=== PATIENT | female | born 1960 | race Caucasian/White ===

== ENCOUNTER 2019-05-31 21:02 | Inpatient (IN) | payer BC ==
[2019-05-31] MEDS: ONDANSETRON 4 MG INJ IV (22:06)
[2019-05-31] MEDS: morphine 4 MG/ML VIAL IV (22:06)
[2019-05-31] MEDS: SOD CHLORIDE 0.9% 1,000 ML IV (22:07)
[2019-05-31] MEDS: metroNIDAZOLE 500 MG/NS (PMX) 100 ML IVPB (22:12)
[2019-05-31 22:13] LABS: ADD MAN DIFF? NO
[2019-05-31 22:17] LABS: WHITE BLOOD COUNT 10.3 10^3/ul (4.8-10.8)
[2019-05-31 22:17] LABS: BASOPHILS % 0.2 % (0.0-2.0); EOSINOPHILS % 0.2 % (0.0-7.0); HEMATOCRIT 40.6 % (37.0-47.0); HEMOGLOBIN 14.8 g/dl (12.0-16.0); LYMPHOCYTES % 9.8 % (15.0-51.0); MEAN CORPUSCULAR HEMOGLOBIN 31.9 pg (29.0-33.0); MEAN CORPUSCULAR HGB CONC 36.5 g/dl (32.0-37.0); MEAN CORPUSCULAR VOLUME 87.5 fl (82.0-101.0); MEAN PLATELET VOLUME 10.7 fl (7.4-10.4); MONOCYTE # 0.6 10^3/ul (0.3-0.9); MONOCYTES % 5.8 % (0.0-11.0); NEUTROPHIL # 8.6 10^3/ul (1.6-7.5); NEUTROPHILS % 83.4 % (39.0-77.0); PLATELET COUNT 220 10^3/UL (140-415); RED BLOOD COUNT 4.64 10^6/ul (4.20-5.40); RED CELL DISTRIBUTION WIDTH 12.6 % (11.5-14.5)
[2019-05-31 22:28] LABS: ALANINE AMINOTRANSFERASE 13 IU/L (13-69); ALBUMIN 3.4 g/dl (3.3-4.9); ALBUMIN/GLOBULIN RATIO 1.06; ALKALINE PHOSPHATASE 85 IU/L (42-121); ANION GAP 10 (5-13); ASPARTATE AMINO TRANSFERASE 18 IU/L (15-46); BILIRUBIN,INDIRECT 1.1 mg/dl (0-1.1); BILIRUBIN,TOTAL 1.1 mg/dl (0.2-1.3); BLOOD UREA NITROGEN 5 mg/dl (7-20); CALCIUM 9.9 mg/dl (8.4-10.2); CARBON DIOXIDE 21 mmol/L (21-31); CHLORIDE 109 mmol/L (97-110); Estimated GFR > 60 mL/min (>60); GLUCOSE 190 mg/dl (70-220); LIPASE 58 U/L (23-300); SODIUM 140 mmol/L (135-144); TOTAL PROTEIN 6.6 g/dl (6.1-8.1)
[2019-05-31 22:30] LABS: POTASSIUM 2.9 mmol/L (3.5-5.1)
[2019-05-31] MEDS: CIPROFLOXACIN 400MG/D5W 200 ML IVPB (22:56)
[2019-05-31] MEDS: SOD CHLORIDE 0.9% 100 ML (23:08)
[2019-05-31] MEDS: IOHEXOL 300MG/ML 150 ML BTL (23:08)
[2019-06-01] MEDS: POTASSIUM CHLORIDE 100 ML IVPB ×2 (00:02→03:44)
[2019-06-01] MEDS: MAGNESIUM SULFATE 2 GM/50 ML 50 ML IVPB (00:02)
[2019-06-01] MEDS: LORAZEPAM 2 MG INJ IV (00:51)
[2019-06-01] MEDS ORDERED: ACETAMINOPHEN 325 MG TAB PO (01:00)
[2019-06-01] MEDS ORDERED: ONDANSETRON 4 MG INJ IV ×2 (01:00→21:00)
[2019-06-01] MEDS ORDERED: ACETAMINOPHEN 650 MG SUPP PR (03:00)
[2019-06-01] MEDS ORDERED: ALBUTEROL/IPRATROPIUM (NEB) 3 ML AMP HHN (03:00)
[2019-06-01] MEDS ORDERED: NACL 0.9% 3 ML SYG IV (03:00)
[2019-06-01] MEDS ORDERED: VANCOMYCIN IV PER PHARMACY XX (03:00)
[2019-06-01] MEDS: DEXTROSE 5%-0.45% NACL 1,000 ML IV ×3 (03:44→22:51)
[2019-06-01] MEDS: VANCOMYCIN 1 GM 250 ML IVPB (03:45)
[2019-06-01 05:44] LABS: ADD MAN DIFF? NO
[2019-06-01 05:48] LABS: BASOPHILS % 0.3 % (0.0-2.0); EOSINOPHILS % 0.1 % (0.0-7.0); HEMATOCRIT 36.5 % (37.0-47.0); LYMPHOCYTES % 8.4 % (15.0-51.0); MEAN CORPUSCULAR HEMOGLOBIN 31.4 pg (29.0-33.0); MEAN CORPUSCULAR HGB CONC 35.6 g/dl (32.0-37.0); MEAN CORPUSCULAR VOLUME 88.2 fl (82.0-101.0); MEAN PLATELET VOLUME 10.2 fl (7.4-10.4); MONOCYTE # 0.7 10^3/ul (0.3-0.9); NEUTROPHIL # 9.6 10^3/ul (1.6-7.5); NEUTROPHILS % 84.5 % (39.0-77.0); PLATELET COUNT 189 10^3/UL (140-415); RED BLOOD COUNT 4.14 10^6/ul (4.20-5.40); RED CELL DISTRIBUTION WIDTH 12.7 % (11.5-14.5)
[2019-06-01 05:48] LABS: WHITE BLOOD COUNT 11.4 10^3/ul (4.8-10.8)
[2019-06-01] MEDS: ONDANSETRON 4 MG INJ IV ×2 (06:07→08:38)
[2019-06-01] MEDS: PIPER-TAZO 3.375 GM IV (PMX) 100 ML IVPB ×4 (06:07→23:21)
[2019-06-01 06:14] LABS: ALANINE AMINOTRANSFERASE 17 IU/L (13-69); ALBUMIN 2.8 g/dl (3.3-4.9); ALBUMIN/GLOBULIN RATIO 0.96; ALKALINE PHOSPHATASE 74 IU/L (42-121); ANION GAP 6 (5-13); ASPARTATE AMINO TRANSFERASE 12 IU/L (15-46); BLOOD UREA NITROGEN 3 mg/dl (7-20); CALCIUM 8.6 mg/dl (8.4-10.2); CARBON DIOXIDE 23 mmol/L (21-31); CHLORIDE 113 mmol/L (97-110); CREATININE 0.52 mg/dl (0.44-1.00); Estimated GFR > 60 mL/min (>60); GLUCOSE 117 mg/dl (70-220); MAGNESIUM 2.2 mg/dl (1.7-2.5); PHOSPHORUS 2.5 mg/dl (2.5-4.9); POTASSIUM 3.5 mmol/L (3.5-5.1); SODIUM 142 mmol/L (135-144); TOTAL PROTEIN 5.7 g/dl (6.1-8.1)
[2019-06-01] MEDS: morphine 2 MG INJ IV ×2 (08:39→15:00)
[2019-06-01] MEDS: VANCOMYCIN 750 MG (PMX) 250 ML IVPB (15:59)
[2019-06-01 16:06] LABS: INR 1.22; PARTIAL THROMBOPLASTIN TIME 33.5 Sec (23.0-35.0); PROTIME 15.5 Sec (11.9-14.9); PT RATIO 1.2
[2019-06-01] MEDS ORDERED: ONDANSETRON INJ 8 MG in SOD CHLORIDE 0.9% 50 ML IV (16:30)
[2019-06-01] MEDS: KETOROLAC 15 MG INJ IV (18:30)
[2019-06-02] MEDS: VANCOMYCIN 750 MG (PMX) 250 ML IVPB ×2 (02:39→16:13)
[2019-06-02] MEDS: KETOROLAC 15 MG INJ IV ×3 (04:01→21:46)
[2019-06-02] MEDS: PIPER-TAZO 3.375 GM IV (PMX) 100 ML IVPB ×4 (06:07→23:45)
[2019-06-02 06:08] LABS: ADD MAN DIFF? NO
[2019-06-02 06:10] LABS: WHITE BLOOD COUNT 9.9 10^3/ul (4.8-10.8)
[2019-06-02 06:10] LABS: BASOPHIL # 0.1 10^3/ul (0.0-0.1); BASOPHILS % 0.5 % (0.0-2.0); EOSINOPHILS # 0.2 10^3/ul (0.0-0.5); EOSINOPHILS % 1.5 % (0.0-7.0); HEMATOCRIT 32.9 % (37.0-47.0); HEMOGLOBIN 11.9 g/dl (12.0-16.0); LYMPHOCYTES # 1.6 10^3/ul (0.8-2.9); LYMPHOCYTES % 16.3 % (15.0-51.0); MEAN CORPUSCULAR HGB CONC 36.2 g/dl (32.0-37.0); MEAN CORPUSCULAR VOLUME 88.4 fl (82.0-101.0); MEAN PLATELET VOLUME 10.5 fl (7.4-10.4); MONOCYTE # 0.6 10^3/ul (0.3-0.9); MONOCYTES % 6.5 % (0.0-11.0); NEUTROPHIL # 7.3 10^3/ul (1.6-7.5); NEUTROPHILS % 74.2 % (39.0-77.0); PLATELET COUNT 189 10^3/UL (140-415); RED BLOOD COUNT 3.72 10^6/ul (4.20-5.40); RED CELL DISTRIBUTION WIDTH 12.8 % (11.5-14.5)
[2019-06-02 06:52] LABS: ANION GAP 4 (5-13); BLOOD UREA NITROGEN 7 mg/dl (7-20); CALCIUM 8.9 mg/dl (8.4-10.2); CARBON DIOXIDE 24 mmol/L (21-31); CHLORIDE 114 mmol/L (97-110); Estimated GFR > 60 mL/min (>60); GLUCOSE 90 mg/dl (70-220); PHOSPHORUS 2.7 mg/dl (2.5-4.9); SODIUM 142 mmol/L (135-144)
[2019-06-02] MEDS: DEXTROSE 5%-0.45% NACL 1,000 ML IV ×3 (08:33→18:51)
[2019-06-02] MEDS: morphine 2 MG INJ IV ×2 (15:22→19:22)
[2019-06-02 15:23] LABS: VANCOMYCIN,TROUGH 6.6 ug/ml (10.0-20.0)
[2019-06-02] MEDS: POTASSIUM CHLORIDE (SR) 20 MEQ TAB PO (16:13)
[2019-06-02] MEDS: HYDROCODONE/APAP (5/325) TAB PO (20:06)
[2019-06-03] MEDS: VANCOMYCIN 750 MG (PMX) 250 ML IVPB ×3 (00:43→18:07)
[2019-06-03] MEDS: morphine 4 MG/ML VIAL IV (02:58)
[2019-06-03] MEDS: HYDROCODONE/APAP (10/325) TAB PO ×3 (04:11→19:39)
[2019-06-03] MEDS: DEXTROSE 5%-0.45% NACL 1,000 ML IV ×3 (04:51→23:53)
[2019-06-03] MEDS: PIPER-TAZO 3.375 GM IV (PMX) 100 ML IVPB ×4 (05:19→23:53)
[2019-06-03] MEDS: KETOROLAC 15 MG INJ IV ×3 (07:54→23:53)
[2019-06-03 16:49] LABS: VANCOMYCIN,TROUGH 11.5 ug/ml (10.0-20.0)
[2019-06-04] MEDS: VANCOMYCIN 750 MG (PMX) 250 ML IVPB ×3 (01:23→18:45)
[2019-06-04] MEDS: HYDROCODONE/APAP (10/325) TAB PO ×3 (03:52→19:36)
[2019-06-04] MEDS: PIPER-TAZO 3.375 GM IV (PMX) 100 ML IVPB ×4 (05:41→23:54)
[2019-06-04 07:31] LABS: ADD MAN DIFF? NO
[2019-06-04 07:35] LABS: WHITE BLOOD COUNT 12.8 10^3/ul (4.8-10.8)
[2019-06-04 07:35] LABS: BASOPHILS % 0.3 % (0.0-2.0); EOSINOPHILS # 0.1 10^3/ul (0.0-0.5); EOSINOPHILS % 0.7 % (0.0-7.0); HEMATOCRIT 34.3 % (37.0-47.0); HEMOGLOBIN 12.2 g/dl (12.0-16.0); LYMPHOCYTES # 1.2 10^3/ul (0.8-2.9); LYMPHOCYTES % 9.1 % (15.0-51.0); MEAN CORPUSCULAR HEMOGLOBIN 31.2 pg (29.0-33.0); MEAN CORPUSCULAR HGB CONC 35.6 g/dl (32.0-37.0); MEAN CORPUSCULAR VOLUME 87.7 fl (82.0-101.0); MEAN PLATELET VOLUME 10.4 fl (7.4-10.4); MONOCYTE # 0.8 10^3/ul (0.3-0.9); MONOCYTES % 6.1 % (0.0-11.0); NEUTROPHIL # 10.6 10^3/ul (1.6-7.5); NEUTROPHILS % 82.7 % (39.0-77.0); PLATELET COUNT 254 10^3/UL (140-415); RED BLOOD COUNT 3.91 10^6/ul (4.20-5.40); RED CELL DISTRIBUTION WIDTH 13.1 % (11.5-14.5)
[2019-06-04] MEDS: KETOROLAC 15 MG INJ IV ×2 (08:00→23:51)
[2019-06-04 08:03] LABS: ANION GAP 7 (5-13); BLOOD UREA NITROGEN 5 mg/dl (7-20); CARBON DIOXIDE 27 mmol/L (21-31); CHLORIDE 109 mmol/L (97-110); CREATININE 0.66 mg/dl (0.44-1.00); Estimated GFR > 60 mL/min (>60); GLUCOSE 64 mg/dl (70-220); SODIUM 143 mmol/L (135-144)
[2019-06-04 08:09] LABS: PHOSPHORUS 3.1 mg/dl (2.5-4.9)
[2019-06-04 08:09] LABS: MAGNESIUM 1.8 mg/dl (1.7-2.5)
[2019-06-04 08:16] LABS: POTASSIUM 2.9 mmol/L (3.5-5.1)
[2019-06-04] MEDS: POTASSIUM CHLORIDE 20 MEQ POWDER FOR ORAL SOLN PO (09:37)
[2019-06-04 11:04] LABS: ADD UMIC YES; UR ASCORBIC ACID NEGATIVE (NEGATIVE); UR BILIRUBIN (Dip) NEGATIVE (NEGATIVE); UR BLOOD (Dip) 2+ mg/dL (NEGATIVE); UR CLARITY CLEAR (CLEAR); UR COLOR YELLOW (YELLOW); UR GLUCOSE (Dip) NEGATIVE (NEGATIVE); UR KETONES (Dip) 1+ mg/dL (NEGATIVE); UR LEUKOCYTE ESTERASE (Dip) TRACE Leu/ul (NEGATIVE); UR NITRITE (Dip) NEGATIVE (NEGATIVE); UR RBC 23 /HPF (0-5); UR SPECIFIC GRAVITY (Dip) 1.012 (1.003-1.030); UR TOTAL PROTEIN (Dip) NEGATIVE (NEGATIVE); UR UROBILINOGEN (Dip) 2+ mg/dL (NEGATIVE); UR WBC 13 /HPF (0-5)
[2019-06-04] MEDS: MAGNESIUM SULFATE 2 GM/50 ML 50 ML IVPB (11:26)
[2019-06-04] MEDS: POTASSIUM CHLORIDE 50 ML IVPB ×3 (13:03→15:50)
[2019-06-04] MEDS: SOD CHLORIDE 0.9% 100 ML (17:51)
[2019-06-04] MEDS: IOHEXOL 300MG/ML 150 ML BTL (17:51)
[2019-06-05] MEDS: VANCOMYCIN 750 MG (PMX) 250 ML IVPB ×3 (01:39→17:37)
[2019-06-05] MEDS: HYDROCODONE/APAP (10/325) TAB PO (05:24)
[2019-06-05] MEDS: PIPER-TAZO 3.375 GM IV (PMX) 100 ML IVPB ×3 (05:24→20:25)
[2019-06-05 06:45] LABS: BLOOD UREA NITROGEN 5 mg/dl (7-20)
[2019-06-05 06:45] LABS: CREATININE 0.59 mg/dl (0.44-1.00)
[2019-06-05] MEDS: KETOROLAC 15 MG INJ IV ×3 (10:33→23:46)
[2019-06-05] MEDS: morphine 4 MG/ML VIAL IV (20:28)
[2019-06-06] MEDS: VANCOMYCIN 750 MG (PMX) 250 ML IVPB ×3 (00:57→17:21)
[2019-06-06] MEDS: PIPER-TAZO 3.375 GM IV (PMX) 100 ML IVPB ×4 (03:41→20:10)
[2019-06-06] MEDS: KETOROLAC 15 MG INJ IV ×2 (10:35→18:05)
[2019-06-06 14:37] LABS: ADD MAN DIFF? NO
[2019-06-06 14:39] LABS: WHITE BLOOD COUNT 12.8 10^3/ul (4.8-10.8)
[2019-06-06 14:39] LABS: BASOPHIL # 0.1 10^3/ul (0.0-0.1); BASOPHILS % 0.4 % (0.0-2.0); EOSINOPHILS # 0.1 10^3/ul (0.0-0.5); EOSINOPHILS % 1.1 % (0.0-7.0); HEMATOCRIT 37.3 % (37.0-47.0); HEMOGLOBIN 13.1 g/dl (12.0-16.0); LYMPHOCYTES # 1.4 10^3/ul (0.8-2.9); LYMPHOCYTES % 11.1 % (15.0-51.0); MEAN CORPUSCULAR HEMOGLOBIN 30.5 pg (29.0-33.0); MEAN CORPUSCULAR HGB CONC 35.1 g/dl (32.0-37.0); MEAN CORPUSCULAR VOLUME 86.9 fl (82.0-101.0); MEAN PLATELET VOLUME 10.1 fl (7.4-10.4); MONOCYTE # 0.8 10^3/ul (0.3-0.9); MONOCYTES % 6.3 % (0.0-11.0); NEUTROPHIL # 10.3 10^3/ul (1.6-7.5); NEUTROPHILS % 80.2 % (39.0-77.0); PLATELET COUNT 372 10^3/UL (140-415); RED BLOOD COUNT 4.29 10^6/ul (4.20-5.40); RED CELL DISTRIBUTION WIDTH 12.9 % (11.5-14.5)
[2019-06-06] MEDS: HYDROCODONE/APAP (10/325) TAB PO ×2 (14:53→22:50)
[2019-06-06 15:07] LABS: ANION GAP 8 (5-13); BLOOD UREA NITROGEN 6 mg/dl (7-20); CALCIUM 9.9 mg/dl (8.4-10.2); CARBON DIOXIDE 25 mmol/L (21-31); CHLORIDE 108 mmol/L (97-110); CREATININE 0.73 mg/dl (0.44-1.00); Estimated GFR > 60 mL/min (>60); GLUCOSE 74 mg/dl (70-220); MAGNESIUM 1.8 mg/dl (1.7-2.5); PHOSPHORUS 3.2 mg/dl (2.5-4.9); POTASSIUM 3.5 mmol/L (3.5-5.1); SODIUM 141 mmol/L (135-144)
[2019-06-07 01:28] LABS: VANCOMYCIN,TROUGH 18.5 ug/ml (10.0-20.0)
[2019-06-07] MEDS: morphine 4 MG/ML VIAL IV (01:39)
[2019-06-07] MEDS: PIPER-TAZO 3.375 GM IV (PMX) 100 ML IVPB ×4 (01:40→20:24)
[2019-06-07] MEDS: KETOROLAC 15 MG INJ IV ×2 (04:09→13:28)
[2019-06-07] MEDS: VANCOMYCIN 1 GM 250 ML IVPB ×2 (04:13→16:40)
[2019-06-07] MEDS: TRIMETHOBENZAMIDE 100 MG/ML VIAL IM (04:13)
[2019-06-07] MEDS: HYDROCODONE/APAP (10/325) TAB PO ×2 (08:45→18:28)
[2019-06-07 11:38] LABS: ADD MAN DIFF? NO
[2019-06-07 11:41] LABS: WHITE BLOOD COUNT 12.3 10^3/ul (4.8-10.8)
[2019-06-07 11:41] LABS: BASOPHILS % 0.3 % (0.0-2.0); EOSINOPHILS # 0.1 10^3/ul (0.0-0.5); EOSINOPHILS % 0.8 % (0.0-7.0); HEMATOCRIT 33.4 % (37.0-47.0); HEMOGLOBIN 11.8 g/dl (12.0-16.0); LYMPHOCYTES # 1.1 10^3/ul (0.8-2.9); LYMPHOCYTES % 9.3 % (15.0-51.0); MEAN CORPUSCULAR HEMOGLOBIN 31.1 pg (29.0-33.0); MEAN CORPUSCULAR HGB CONC 35.3 g/dl (32.0-37.0); MEAN CORPUSCULAR VOLUME 87.9 fl (82.0-101.0); MEAN PLATELET VOLUME 10.2 fl (7.4-10.4); MONOCYTES % 7.9 % (0.0-11.0); NEUTROPHIL # 9.9 10^3/ul (1.6-7.5); NEUTROPHILS % 80.9 % (39.0-77.0); PLATELET COUNT 368 10^3/UL (140-415); RED CELL DISTRIBUTION WIDTH 12.9 % (11.5-14.5)
[2019-06-07 12:03] LABS: ANION GAP 8 (5-13); BLOOD UREA NITROGEN 8 mg/dl (7-20); CALCIUM 9.5 mg/dl (8.4-10.2); CARBON DIOXIDE 27 mmol/L (21-31); CHLORIDE 107 mmol/L (97-110); Estimated GFR > 60 mL/min (>60); GLUCOSE 109 mg/dl (70-220); MAGNESIUM 1.7 mg/dl (1.7-2.5); PHOSPHORUS 3.3 mg/dl (2.5-4.9); SODIUM 142 mmol/L (135-144)
[2019-06-07 12:06] LABS: POTASSIUM 2.7 mmol/L (3.5-5.1)
[2019-06-07 13:21] LABS: HIV 1&2 ANTIBODY NEGATIVE (NEGATIVE)
[2019-06-07] MEDS: POTASSIUM CHLORIDE (SR) 20 MEQ TAB PO (13:22)
[2019-06-07] MEDS: POTASSIUM CHLORIDE 100 ML IVPB ×2 (14:45→21:45)
[2019-06-07] MEDS: NAPROXEN 500 MG TAB PO (21:43)
[2019-06-07 22:27] LABS: RAPID PLASMA REAGIN NONREACTIVE (NR)
[2019-06-08] MEDS: HYDROCODONE/APAP (10/325) TAB PO ×2 (00:47→07:19)
[2019-06-08] MEDS: FLUCONAZOLE 200 MG (PMX) 100 ML IVPB (02:02)
[2019-06-08] MEDS: PIPER-TAZO 3.375 GM IV (PMX) 100 ML IVPB ×3 (03:15→13:35)
[2019-06-08 06:24] LABS: ADD MAN DIFF? NO
[2019-06-08 06:26] LABS: BASOPHIL # 0.1 10^3/ul (0.0-0.1); BASOPHILS % 0.5 % (0.0-2.0); EOSINOPHILS # 0.1 10^3/ul (0.0-0.5); EOSINOPHILS % 1.2 % (0.0-7.0); HEMOGLOBIN 11.3 g/dl (12.0-16.0); LYMPHOCYTES # 1.3 10^3/ul (0.8-2.9); LYMPHOCYTES % 13.1 % (15.0-51.0); MEAN CORPUSCULAR HEMOGLOBIN 30.5 pg (29.0-33.0); MEAN CORPUSCULAR HGB CONC 34.2 g/dl (32.0-37.0); MEAN CORPUSCULAR VOLUME 88.9 fl (82.0-101.0); MEAN PLATELET VOLUME 10.2 fl (7.4-10.4); MONOCYTE # 0.9 10^3/ul (0.3-0.9); NEUTROPHIL # 7.5 10^3/ul (1.6-7.5); NEUTROPHILS % 75.4 % (39.0-77.0); PLATELET COUNT 346 10^3/UL (140-415); RED BLOOD COUNT 3.71 10^6/ul (4.20-5.40); RED CELL DISTRIBUTION WIDTH 13.1 % (11.5-14.5)
[2019-06-08 06:44] LABS: LACTIC ACID 0.9 mmol/L (0.5-2.0)
[2019-06-08 06:50] LABS: ANION GAP 6 (5-13); BLOOD UREA NITROGEN 8 mg/dl (7-20); CALCIUM 9.8 mg/dl (8.4-10.2); CARBON DIOXIDE 26 mmol/L (21-31); CHLORIDE 110 mmol/L (97-110); Estimated GFR > 60 mL/min (>60); GLUCOSE 86 mg/dl (70-220); MAGNESIUM 1.8 mg/dl (1.7-2.5); PHOSPHORUS 3.2 mg/dl (2.5-4.9); POTASSIUM 3.6 mmol/L (3.5-5.1); SODIUM 142 mmol/L (135-144)
[2019-06-08] MEDS ORDERED: LIDOCAINE 1% (MPF) 5 ML VIAL SC (09:00)
[2019-06-08 11:29] LABS: PROCALCITONIN 0.15 ng/mL (0.00-0.10)
[2019-06-08] MEDS: NAPROXEN 500 MG TAB PO (13:35)
[2019-06-08] MEDS ORDERED: FLUCONAZOLE 200 MG (PMX) 100 ML IVPB (18:00)
== END 2019-06-08 16:07 | disposition home health service (06) | DRG 757 ==
LOC: PP2 06-01 00:33 → E/R 21:02
PROC: 02HV33Z Insertion of Infusion Device into Superior Vena Cava, Percutaneous Approach (ICD-10-PCS; principal; 2019-06-08)
DX: N70.93 Salpingitis and oophoritis, unspecified (principal); K65.1 Peritoneal abscess; K57.92 Diverticulitis of intestine, part unspecified, without perforation or abscess without bleeding; F17.200 Nicotine dependence, unspecified, uncomplicated
CPT/HCPCS: 36415; 36569; 71045; 74177; 76830; 76856; 76937; 80048; 80053; 80202; 81001; 82565; 83605; 83690; 83735; 84100; 84145; 84520; 85025; 85610; 85730; 86592; 86703; 87040-91; 87081; 87591; 96374; 96375; 99285-25

== ENCOUNTER → 2019-06-18 | Outpatient (CLI) | payer OTHER ==
[2019-06-18] MEDS: SOD CHLORIDE 0.9% 100 ML (11:08)
[2019-06-18] MEDS: IOHEXOL 300MG/ML 150 ML BTL (11:08)
== END | disposition home or self-care (01) ==
LOC: C/S 10:15
DX: K57.92 Diverticulitis of intestine, part unspecified, without perforation or abscess without bleeding (principal)
CPT/HCPCS: 74177